=== PATIENT | male | born 1985 | race Caucasian/White ===

== ENCOUNTER 2018-03-01 13:34 | Emergency (ER) | payer OTHER ==
[~2018-03-01] VITALS: Ht 185.4 cm; Wt 100.0 kg
[2018-03-01] MEDS ORDERED: SODIUM CHLORIDE 0.9% 1,000ML IVBOLUS ONE (14:30)
[2018-03-01] MEDS ORDERED: SODIUM CHLORIDE FLUSH 10ML SYR IVF ONE (14:30)
[2018-03-01] MEDS ORDERED: ASPI-515 PO (14:54)
[2018-03-01] MEDS ORDERED: IBUP-1223 PO (14:54)
[2018-03-01 14:57] LABS: BASOPHILS % (AUTO) 0 % (0-1); EOSINOPHILS # (AUTO) 0.03 x10^3/uL (0-0.4); EOSINOPHILS % (AUTO) 0 % (1-7); LYMPHOCYTES # (AUTO) 0.74 x10^3/uL (1-3.4); LYMPHOCYTES % (AUTO) 7 % (22-44); MD NO; MEAN CORPUSCULAR HEMOGLOBIN 31.5 pg (27.5-34.5); MEAN CORPUSCULAR HGB CONC 34.4 g/dL (33.2-36.2); MEAN CORPUSCULAR VOLUME 91.5 fL (81-97); MEAN PLATELET VOLUME 8.6 fL (7.4-10.4); MONOCYTES # (AUTO) 1.14 x10^3/uL (0.2-0.8); MONOCYTES % (AUTO) 11 % (2-9); NEUTROPHILS # (AUTO) 8.47 x10^3/uL (1.8-6.8); NEUTROPHILS % (AUTO) 82 % (42-75); PLATELET COUNT 223 x10^3/uL (130-400); RED BLOOD COUNT 5.25 x10^6/uL (4.38-5.82); RED CELL DISTRIBUTION WIDTH 14.2 % (9.4-14.8)
[2018-03-01 15:02] LABS: ANION GAP 7 mmol/L (5-15); CALCIUM 9.6 mg/dL (8.5-10.1); CHLORIDE 105 mmol/L (98-107); CREATININE 1.11 mg/dL (0.7-1.3)
[2018-03-01] MEDS ORDERED: OMNIPAQUE 350 MG/ML, 100ML BOTTLE ONE (16:55)
[2018-03-01] MEDS ORDERED: HYDROcodone/APAP 5/325 TABLET PO ONE (17:00)
[2018-03-01] MEDS ORDERED: HYDROcodone/APAP 5/325 TABLET ONE (17:01)
[2018-03-01] MEDS ORDERED: CEFTRIAXONE PMX 1GM/50ML 50 ML ONE (18:02)
[2018-03-01] MEDS ORDERED: CEFTRIAXONE PMX 1GM/50ML 50 ML IV ONE (18:30)
[2018-03-01 18:35] VITALS: BP 114/51
== END 2018-03-01 19:08 | disposition home or self-care (01) ==
LOC: ED 16:03
DX: L03.116 Cellulitis of left lower limb (principal); M25.562 Pain in left knee
CPT/HCPCS: 36415; 71045; 71275; 80048; 82040; 83605; 85025; 87040; 93005; 93971; 96365; 99285; J0696; J7030; Q9967

== ENCOUNTER 2020-03-08 01:28 | Emergency (ER) | payer SELFPAY ==
[~2020-03-08] VITALS: Ht 182.9 cm; Wt 88.0 kg
[~2020-03-08 01:28] MED LIST: ASPI-515 PO; IBUP-1223 PO
[2020-03-08 01:33] VITALS: BP 134/81
--- NOTE | 2020-03-08 01:55 | NUR ---
ERP AT BEDSIDE TO EVAL.
--- NOTE | 2020-03-08 02:00 | NUR ---
Pt's s/o requesting to speak with pt concerning POC and will notify staff if they would like workup or not.
--- NOTE | 2020-03-08 02:15 | NUR ---
Pt would like US "for peace of mind" to r/o blood clot. Pt declines any lab work at this time. ERP aware of pt request. Call light in reach. No further needs expressed.
--- NOTE | 2020-03-08 02:18 | NUR ---
Pt to US via [facility].
--- NOTE | 2020-03-08 02:56 | NUR ---
Pt returned from US. Pt seen leaving with s/o prior to results while this RN was on phone. It is assumed pt has eloped. RN to attempt to confirm.
--- NOTE | 2020-03-08 03:00 | NUR ---
Pt seen by ER staff leaving department with s/o. Pt eloped prior to US results.
== END 2020-03-08 03:02 | disposition left against medical advice (07) ==
LOC: ED 02:15
DX: M54.2 Cervicalgia (principal); M79.641 Pain in right hand; M79.89 Other specified soft tissue disorders; F14.129 Cocaine abuse with intoxication, unspecified; Z72.9 Problem related to lifestyle, unspecified; Z87.891 Personal history of nicotine dependence
CPT/HCPCS: 99284